=== PATIENT | male | born 1960 | race Caucasian/White ===

== ENCOUNTER 2021-05-24 19:37 | Inpatient (IN) ==
[2021-05-24] MEDS ORDERED: SODIUM CHLORIDE 0.9% 1,000 ML IV STA (20:33)
[2021-05-24 20:43] LABS: Basophils % 0.3 % (0.0-0.8); Eosinophils % 0.5 % (0.00-10.9); Hematocrit 50.5 VOL% (42.0-52.0); Hemoglobin 16.4 GM/DL (14.0-18.0); Immature Granulocytes % 0.3 %; Immature Granulocytes Absolute 0.02 #; Lymphocytes # 0.4 10*3/uL (1.4-4.0); Lymphocytes % 5.7 % (21.2-54.2); Mean Corpuscular HGB Conc 32.5 GM/DL (32-36); Mean Corpuscular Volume 87.1 FL (87-102); Monocytes # 0.1 10*3/uL (0.11-0.8); Monocytes % 1.1 % (1.7-12.7); Neutrophils % 92.1 % (38.7-73.9); Platelet Count 176 T/CUMM (130-400); Red Cell Distribution Width 13.4 % (9.3-17.3); White Blood Count 6.1 T/CUMM (4-12)
[2021-05-24 20:55] LABS: Alanine Aminotransferase 34 U/L (16-61); Albumin 3.7 G/DL (3.4-5.0); Alkaline Phosphatase 162 U/L (45-117); Aspartate Amino Transferase 20 U/L (0-37); Blood Urea Nitrogen 19 MG/DL (7-18); Calcium 9.1 MG/DL (8.5-10.1); Carbon Dioxide 22 MMOL/L (21-32); Chloride 107 MMOL/L (98-107); Estimated Glom Filtration Rate 55 ML/MIN; Glucose 167 MG/DL (74-106); Osmolality,Calculated 278.8 MOS/KG (273-304); Potassium 3.4 MMOL/L (3.5-5.1); Sodium 137 MMOL/L (136-145); Total Protein 7.6 G/DL (6.4-8.2)
[2021-05-24] MEDS ORDERED: SODIUM CHLORIDE 0.9% 1,500 ML IV STA (21:00)
[2021-05-24 21:46] LABS: Band Neutrophils 20 % (0-10); Lymphocytes 5 % (20-55); Total Cells Counted 100
[2021-05-24 22:11] LABS: Bacteria,Urine Few /HPF (Few); Bilirubin,Urine Negative (Negative); Glucose,Urine (UA) Negative (Negative); Ketones,Urine Trace mg/dL (Negative); Mucus,Urine Moderate /LPF (Occasional); Nitrite,Urine Negative (Negative); Protein,Urine 30 mg/dL (Negative); RBC,Urine 7 /HPF (0-4); Squamous Epithelial Cell,Urine Occasional /HPF (0-10); Urine Appearance Cloudy (Clear); Urine Color Yellow (Yellow); Urine Specific Gravity 1.025 (1.001-1.035); Urine pH 5.5 (4.5-8.0)
[2021-05-24 22:12] LABS: Blood, Urine Small mg/dL (Negative); Urine Urobilinogen 0.2 eU/dL (<2.0)
[2021-05-24] MEDS ORDERED: LEVOFLOXACIN INJ 500 MG/100 ML PREMIX IV ONE (22:14)
[2021-05-24] MEDS ORDERED: TAMSULOSIN 0.4 MG CAPSULE PO ONE (23:19)
[2021-05-24] MEDS ORDERED: POTASSIUM CHLORIDE 20 MEQ TABLET PO PRN (23:21)
[2021-05-24] MEDS ORDERED: DEXTROSE 10% 250 ML BAG IV PRN (23:29)
[2021-05-24] MEDS ORDERED: ONDANSETRON 4 MG/2 ML VIAL IV PRN (23:29)
[2021-05-24] MEDS ORDERED: DOCUSATE SODIUM 100 MG CAPSULE PO PRN (23:29)
[2021-05-24] MEDS ORDERED: ACETAMINOPHEN 325 MG TABLET PO PRN (23:29)
[2021-05-24] MEDS ORDERED: GLUCAGON 1 MG VIAL IM PRN (23:29)
[2021-05-25] MEDS: LACTATED RINGERS 1,000 ML IV SCH ×3 (01:00→18:16)
[2021-05-25 04:31] LABS: Albumin 2.9 G/DL (3.4-5.0); Bilirubin,Total 1.4 MG/DL (0.20-1.00); Calcium 8.6 MG/DL (8.5-10.1); Osmolality,Calculated 279.5 MOS/KG (273-304); Potassium 3.8 MMOL/L (3.5-5.1); Total Protein 6.3 G/DL (6.4-8.2)
[2021-05-25 05:01] LABS: Basophils % 0.2 % (0.0-0.8); Eosinophils % 0.1 % (0.00-10.9); Hematocrit 45.9 VOL% (42.0-52.0); Hemoglobin 15.1 GM/DL (14.0-18.0); Immature Granulocytes % 0.5 %; Immature Granulocytes Absolute 0.07 #; Lymphocytes # 0.6 10*3/uL (1.4-4.0); Lymphocytes % 4.6 % (21.2-54.2); Mean Corpuscular HGB Conc 32.9 GM/DL (32-36); Mean Corpuscular Volume 87.1 FL (87-102); Mean Platelet Volume 10.1 FL (9.6-12.0); Monocytes # 1.1 10*3/uL (0.11-0.8); Monocytes % 8.2 % (1.7-12.7); Neutrophils % 86.4 % (38.7-73.9); Platelet Count 150 T/CUMM (130-400); Red Blood Count 5.27 MC/CUMM (3.8-5.5); Red Cell Distribution Width 13.6 % (9.3-17.3); White Blood Count 13.4 T/CUMM (4-12)
[2021-05-25 05:20] LABS: Band Neutrophils 2 % (0-10); Lymphocytes 5 % (20-55); Platelet Estimate Adequate; Total Cells Counted 100
[2021-05-25] MEDS: ALFUZOSIN 10 MG TABLET PO SCH (08:25)
[2021-05-25] MEDS: ENOXAPARIN 40 MG/0.4 ML SYRINGE SUBCUT SCH (08:25)
[2021-05-25] MEDS ORDERED: MEROPENEM 500 MG in SODIUM CHLORIDE 0.9% 100 ML IV SCH (16:00)
[2021-05-25] MEDS: LEVOFLOXACIN INJ 500 MG/100 ML PREMIX IV SCH (21:15)
[2021-05-26] MEDS: LACTATED RINGERS 1,000 ML IV SCH ×2 (03:14→13:03)
[2021-05-26 04:55] LABS: Basophils % 0.3 % (0.0-0.8); Eosinophils # 0.2 10*3/uL (0.0-0.87); Eosinophils % 1.8 % (0.00-10.9); Hematocrit 42.5 VOL% (42.0-52.0); Hemoglobin 13.8 GM/DL (14.0-18.0); Immature Granulocytes % 0.5 %; Immature Granulocytes Absolute 0.05 #; Lymphocytes # 1.2 10*3/uL (1.4-4.0); Lymphocytes % 13.1 % (21.2-54.2); Mean Corpuscular HGB Conc 32.5 GM/DL (32-36); Mean Corpuscular Volume 85.7 FL (87-102); Mean Platelet Volume 10.6 FL (9.6-12.0); Monocytes # 1.3 10*3/uL (0.11-0.8); Monocytes % 13.6 % (1.7-12.7); Neutrophils % 70.7 % (38.7-73.9); Platelet Count 105 T/CUMM (130-400); Red Blood Count 4.96 MC/CUMM (3.8-5.5); Red Cell Distribution Width 13.6 % (9.3-17.3); White Blood Count 9.4 T/CUMM (4-12)
[2021-05-26 05:16] LABS: Albumin 2.6 G/DL (3.4-5.0); Bilirubin,Total 1.1 MG/DL (0.20-1.00); Osmolality,Calculated 280.4 MOS/KG (273-304); Potassium 3.7 MMOL/L (3.5-5.1)
[2021-05-26 05:23] LABS: Eosinophils 1 % (0-10); Lymphocytes 15 % (20-55); Total Cells Counted 100
[2021-05-26] MEDS: ALFUZOSIN 10 MG TABLET PO SCH (09:27)
[2021-05-26] MEDS: ENOXAPARIN 40 MG/0.4 ML SYRINGE SUBCUT SCH (10:10)
[2021-05-26] MEDS: LEVOFLOXACIN INJ 500 MG/100 ML PREMIX IV SCH (20:37)
[2021-05-27] MEDS: LACTATED RINGERS 1,000 ML IV SCH ×2 (00:07→11:38)
[2021-05-27 08:15] VITALS: BP 121/80
[2021-05-27 08:31] LABS: Basophils % 0.4 % (0.0-0.8); Eosinophils # 0.3 10*3/uL (0.0-0.87); Eosinophils % 4.7 % (0.00-10.9); Hemoglobin 15.4 GM/DL (14.0-18.0); Immature Granulocytes % 0.4 %; Immature Granulocytes Absolute 0.03 #; Lymphocytes # 1.2 10*3/uL (1.4-4.0); Lymphocytes % 17.3 % (21.2-54.2); Mean Corpuscular HGB Conc 32.8 GM/DL (32-36); Mean Corpuscular Volume 85.1 FL (87-102); Mean Platelet Volume 10.9 FL (9.6-12.0); Monocytes # 0.8 10*3/uL (0.11-0.8); Neutrophils % 65.2 % (38.7-73.9); Platelet Count 139 T/CUMM (130-400); Red Blood Count 5.52 MC/CUMM (3.8-5.5); Red Cell Distribution Width 13.8 % (9.3-17.3); White Blood Count 6.8 T/CUMM (4-12)
[2021-05-27 08:46] LABS: Calcium 8.8 MG/DL (8.5-10.1); Osmolality,Calculated 280.3 MOS/KG (273-304)
[2021-05-27] MEDS: ALFUZOSIN 10 MG TABLET PO SCH (10:09)
[2021-05-27] MEDS: ENOXAPARIN 40 MG/0.4 ML SYRINGE SUBCUT SCH (10:12)
[2021-05-27] MEDS ORDERED: LEVOFLOXACIN 500 MG TABLET PO SCH (11:00)
== END 2021-05-27 11:53 | disposition home or self-care (01) | DRG 872 ==
LOC: N.ED 19:37 → N.EDINP 22:26 → N.5E 05-25 11:50
PROVIDERS: ADMIT Internal Medicine; ATTEND Internal Medicine